=== PATIENT | male | born 1970 | race Two or more races ===

== ENCOUNTER 2020-12-24 13:03 | Emergency (ER) | payer MEDICAID ==
[~2020-12-24] VITALS: Ht 152.4 cm; Wt 65.8 kg
--- NOTE | 2020-12-24 13:12 | NUR ---
THE PATIENT BIBS FOR MED CLEARANCE FOR [facility] FEELS DEPRESSED DUE TO ALCOHOL USE. DENIES SI/HI. DENIES PAIN. IN ROOM AIR AND DENIES SOB. RESPIRAITON REGULAR AND UNLABORED. WILL CONTINUE TO MONITOR THE PATIENT.
[2020-12-24 13:41] LABS: BASOPHILS # (AUTO) 0.1 K/uL (0.0-0.2); BASOPHILS % (AUTO) 1.9 % (0.0-2.0); EOSINOPHILS % (AUTO) 1.9 % (0.0-6.0); HEMATOCRIT 37 % (39-51); HEMOGLOBIN 12.6 g/dL (13.5-17.5); LYMPHOCYTES # (AUTO) 0.7 K/uL (0.8-4.8); LYMPHOCYTES % (AUTO) 21.9 % (20.0-44.0); MEAN CORPUSCULAR HGB CONC 34 g/dl (31.0-36.0); MEAN CORPUSCULAR VOLUME 100 fL (80-96); MONOCYTES # (AUTO) 0.4 K/uL (0.1-1.30); MONOCYTES % (AUTO) 12.1 % (2.0-12.0); NEUTROPHILS % (AUTO) 62.2 % (43.0-81.0); PLATELET COUNT (AUTO) 149 K/uL (150-450); RED BLOOD CELL COUNT(AUTO) 3.71 MIL/uL (4.5-6.0); WHITE BLOOD COUNT (AUTO) 3.2 K/uL (4.3-11.0)
--- NOTE | 2020-12-24 13:47 | NUR ---
covid swab done and sent to the lab
[2020-12-24 13:54] LABS: CALCIUM, SERUM 8.2 mg/dL (8.5-10.1); CREATININE 0.7 mg/dL (0.6-1.3)
[2020-12-24 13:59] LABS: ALBUMIN 4.1 g/dL (3.4-5.0); BILIRUBIN,DIRECT 0.1 mg/dL (0.0-0.2); BILIRUBIN,TOTAL 0.3 mg/dL (0.2-1.0); TOTAL PROTEIN, SERUM 8.1 g/dL (6.4-8.2)
--- NOTE | 2020-12-24 14:06 | NUR ---
URINE COLLECTED AND SENT TO THE LAB
[2020-12-24 14:17] LABS: BILIRUBIN,URINE Negative (NEGATIVE); COLOR,URINE YELLOW (YELLOW); LEUKOCYTE ESTERASE ,URINE Negative (NEGATIVE); NITRITE, URINE Negative (NEGATIVE); PROTEIN,URINE Negative (NEGATIVE); UGLUCOSE Negative (NEGATIVE); UROBILINOGEN,URINE 0.2 EU/dL (0.2)
--- NOTE | 2020-12-24 17:21 | NUR ---
THE PATIENT ALERT AND ORIENTED X4. DENIES PAIN OR SOB. BREATHING EVEN AND UNLABORED. WILL CONTINUE TO MONITOR THE PATIENT.
--- NOTE | 2020-12-24 21:25 | NUR ---
TRANSFER INFO: PT ACCEPTED TO [facility], BY DR MCCLAIN, RN FOR REPORT [phone], ETA TO FOLLOW
--- NOTE | 2020-12-24 21:28 | NUR ---
[facility] ETA [phone]
[2020-12-24 22:20] VITALS: BP 144/83
--- NOTE | 2020-12-24 22:22 | NUR ---
REPORT GIVEN TO MARGOTH RODRIGUEZ FOR [facility]
--- NOTE | 2020-12-24 23:23 | NUR ---
REPORT GIVEN TO EMT, PT WILL BE TRANSFERED TO [facility].
[2020-12-25] MEDS ORDERED: PHEN100C4 PO (13:24)
== END 2020-12-24 23:57 ==
LOC: ER 13:23
DX: F10.129 Alcohol abuse with intoxication, unspecified (principal); Y90.7 Blood alcohol level of 200-239 mg/100 ml
CPT/HCPCS: 36415; 80048; 80076; 80143; 80307; 80320 ×2; 81003; 85025; 87426; 99285; C9803; G0480

== ENCOUNTER 2020-12-25 12:41 | Emergency (ER) | payer MEDICAID ==
[~2020-12-25] VITALS: Ht 152.4 cm; Wt 63.5 kg
--- NOTE | 2020-12-25 12:50 | NUR ---
ASSUME PT CARE. [facility], PER REPORT WAS FOUND IN THE GROUND. AND MIGHT HAVE A SEIZURE EPISODE. PT ADMITS HISTORY OF SEIZURE BUT IS NOT GETTING MEDICATION. 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 PLACED ON SEIZURE PRECAUTION. STABLE VITALS [employer] KITCHEN. AWAITING MD HUERTAS.
--- NOTE | 2020-12-25 12:55 | NUR ---
DR PARRA AT BEDSIDE FOR EVAL.
[2020-12-25] MEDS ORDERED: LORAZEPAM INJ 2 MG/ML VIAL ONE (13:13)
--- NOTE | 2020-12-25 13:16 | NUR ---
CASH APPLICATION CLERK AT BEDSIDE FOR BLOOD DRAW.
[2020-12-25] MEDS: LORAZEPAM INJ 2 MG/ML VIAL IVP ONE (13:21)
[2020-12-25] MEDS ORDERED: PHEN100C4 PO (13:24)
[2020-12-25 13:26] LABS: BASOPHILS # (AUTO) 0.2 K/uL (0.0-0.2); BASOPHILS % (AUTO) 2.8 % (0.0-2.0); EOSINOPHILS % (AUTO) 2.6 % (0.0-6.0); HEMATOCRIT 39 % (39-51); HEMOGLOBIN 13.6 g/dL (13.5-17.5); LYMPHOCYTES # (AUTO) 0.4 K/uL (0.8-4.8); LYMPHOCYTES % (AUTO) 6.8 % (20.0-44.0); MEAN CORPUSCULAR HGB CONC 35 g/dl (31.0-36.0); MEAN CORPUSCULAR VOLUME 99 fL (80-96); MONOCYTES # (AUTO) 0.5 K/uL (0.1-1.30); MONOCYTES % (AUTO) 8.4 % (2.0-12.0); NEUTROPHILS # (AUTO) 4.9 K/uL (1.8-8.9); NEUTROPHILS % (AUTO) 79.4 % (43.0-81.0); PLATELET COUNT (AUTO) 157 K/uL (150-450); RED BLOOD CELL COUNT(AUTO) 3.97 MIL/uL (4.5-6.0); WHITE BLOOD COUNT (AUTO) 6.2 K/uL (4.3-11.0)
--- NOTE | 2020-12-25 13:45 | NUR ---
PT TO RADIOLOGY FOR HEAD CT SCAN VIA [facility].
--- NOTE | 2020-12-25 14:46 | NUR ---
[facility]ORT [facility] CALLED WITH ETA OF 1530 PER SHERIF
--- NOTE | 2020-12-25 15:31 | NUR ---
PT TRANSPORTED BACK TO [facility]. STABLE VITALS. PROVIDED W. ACI AND PRESCRIPTION.
[2020-12-25 15:32] VITALS: BP 132/84
== END 2020-12-25 15:33 ==
LOC: ER 12:44
DX: G40.909 Epilepsy, unspecified, not intractable, without status epilepticus (principal); R51.9 Headache, unspecified; F10.10 Alcohol abuse, uncomplicated; Y90.9 Presence of alcohol in blood, level not specified
CPT/HCPCS: 36415; 70450; 80048; 85025; 96374; 99284; J2060